=== PATIENT | female | born 1945 | race Caucasian/White ===

== ENCOUNTER 2020-04-18 08:26 | Emergency (ER) | payer OTHER ==
[2020-04-18] MEDS ORDERED: MOBIC7.5 MG PO (09:45)
== END 2020-04-18 10:17 | disposition home or self-care (01) ==
LOC: FER 08:26
DX: M17.11 Unilateral primary osteoarthritis, right knee (principal); Z86.73 Personal history of transient ischemic attack (TIA), and cerebral infarction without residual deficits; Z79.02 Long term (current) use of antithrombotics/antiplatelets; Z79.899 Other long term (current) drug therapy
CPT/HCPCS: 73564